=== PATIENT | female | born 1970 | race Caucasian/White ===

== ENCOUNTER → 2016-12-08 | Outpatient (CLI) | payer OTHER, BC ==
--- NOTE | 2016-12-11 09:58 | MM ---
Reason for exam: screening (asymptomatic). Last mammogram was performed 8 years and 1 month ago. History: Took hormonal contraceptives for 14 years beginning at age 22. Physical Findings: A clinical breast exam by your physician is recommended on an annual basis and results should be correlated with mammographic findings. MG 3D Screening Mammo W/Cad Bilateral CC and MLO view(s) were taken. Prior study comparison: November 10, 2008, bilateral digital screening mammogram. There are scattered fibroglandular densities. There is no discrete abnormality. No significant changes when compared with prior studies. ASSESSMENT: Negative, BI-RAD 1 RECOMMENDATION: Routine screening mammogram of both breasts in 1 year.
== END | disposition home or self-care (01) ==
LOC: RADMAMWWP 07:52
PROVIDERS: ATTEND Obstetrics & Gynecology
DX: Z12.31 Encounter for screening mammogram for malignant neoplasm of breast (principal)
CPT/HCPCS: 77063; G0202

== ENCOUNTER 2019-05-20 09:37 | Emergency (ER) | payer OTHER, BC ==
[2019-05-20 09:46] VITALS: BP 128/81; PULSE 100; RESP 20; TEMP 98.8
[2019-05-20] MEDS ORDERED: MORPHINE SULFATE 4 MG/ML SYRINGE IV STA (10:02)
[2019-05-20] MEDS ORDERED: SODIUM CHLORIDE 0.9% 1,000 ML IV STA ×2 (10:02)
[2019-05-20] MEDS ORDERED: KETOROLAC 30 MG/ML 1 ML VIAL IVP STA (10:02)
[2019-05-20] MEDS ORDERED: ONDANSETRON 4 MG/2 ML VIAL IVP STA (10:02)
--- NOTE | 2019-05-20 10:06 | ED ---
Abdominal Pain HPI - General Chief Complaint: Abdominal Pain Stated Complaint: Abd.pain Time Seen by Provider: 05/20/19 09:47 Source: patient, RN notes reviewed, old records reviewed Mode of arrival: wheelchair Limitations: no limitations - History of Present Illness Initial Comments: 49-year-old female suffers from today with diffuse abdominal pain since Sunday. Patient reports that it started with lower abdominal pain related to her entire abdomen now persist in her lower abdomen. She reports it is somewhat darker urine. She denies any significant fever but does report that she's had chills. She denies dysuria or changes in stools. Patient states that she's had no significant past medical history surgical history. No vomiting episodes. Patient reports that she has abdominal pain with going over bumps in the car, and any engagement of her abdominal muscles causes pain. - Related Data Previous Rx's Medication Instructions Recorded Amoxic-Pot Clav 875-125Mg 1 tab PO Q12HR #20 tablet 05/20/19 [Augmentin 875-125] Ondansetron Odt [Zofran Odt] 4 mg PO Q8HR PRN #12 tab 05/20/19 Allergies Allergy/AdvReac Type Severity Reaction Status Date / Time No Known Allergies Allergy Verified 05/20/19 10:48 Review of Systems ROS Statement: Those systems with pertinent positive or pertinent negative responses have been documented in the HPI. ROS Other: All systems not noted in ROS Statement are negative. Past Medical History Past Medical History: No Reported History History of Any Multi-Drug Resistant Organisms: None Reported Past Surgical History: No Surgical Hx Reported Past Psychological History: No Psychological Hx Reported Smoking Status: Never smoker Past Alcohol Use History: None Reported Past Drug Use History: None Reported General Exam - General Exam Comments Initial Comments: Patient is a 49-year-old female. Alert and oriented 3. No distress. Limitations: no limitations General appearance: alert, in no apparent distress Head exam: Present: atraumatic, normocephalic, normal inspection Eye exam: Present: normal appearance, PERRL, EOMI. Absent: scleral icterus, conjunctival injection, periorbital swelling ENT exam: Present: normal exam, mucous membranes moist Neck exam: Present: normal inspection. Absent: tenderness, meningismus, lymphadenopathy Respiratory exam: Present: normal lung sounds bilaterally. Absent: respiratory distress, wheezes, rales, rhonchi, stridor Cardiovascular Exam: Present: regular rate, normal rhythm, normal heart sounds. Absent: systolic murmur, diastolic murmur, rubs, gallop, clicks GI/Abdominal exam: Present: soft, tenderness (Patient is diffuse abdominal tenderness. Guarding over the left lower quadrant.), guarding (Left lower quadrant) Extremities exam: Present: normal inspection, full ROM, normal capillary refill. Absent: tenderness, pedal edema, joint swelling, calf tenderness Back exam: Present: normal inspection Neurological exam: Present: alert, oriented X3, CN II-XII intact Psychiatric exam: Present: normal affect, normal mood Skin exam: Present: warm, dry, intact, normal color. Absent: rash Course Vital Signs 05/20/19 09:43 Temperature 98.8 F Pulse Rate 100 Respiratory 20 Rate Blood Pressure 128/81 O2 Sat by Pulse 98 Oximetry Medical Decision Making - Medical Decision Making Patient is a 49-year-old female who presents emergency department today for evaluation for lower abdominal pain, intermittent chills. She denies any vomiting or changes in stool or bowel habits. Patient denied any urinary symptoms. At this time Patient reports she's not been eating much due to the pain. Patient's urinalysis is positive for 4+ ketones. No sign of infection. Blood work was reviewed and rolled to the unremarkable. She did have significant tenderness despite pain medication. CT on pelvis is noted. There is evidence of acute unconjugated diverticulitis. We'll treat the Patient at this time with a course of Augmentin. I discussed that Patient should follow-up promptly with primary care doctor. There is also some indeterminate lesions over bilateral kidneys. Discussed she follow out patiently in regards to this with her PCP. Patient agrees to treatment plan will comply. Return parameters were discussed. - Lab Data Result diagrams: 05/20/19 10:30 05/20/19 10:30 Lab Results 05/20/19 05/20/19 05/20/19 Range/Units 10:30 10:30 10:30 WBC (3.8-10.6) k/uL RBC (3.80-5.40) m/uL Hgb (11.4-16.0) gm/dL Hct (34.0-46.0) % MCV (80.0-100.0) fL MCH (25.0-35.0) pg MCHC (31.0-37.0) g/dL RDW (11.5-15.5) % Plt Count (150-450) k/uL Neutrophils % % Lymphocytes % % Monocytes % % Eosinophils % % Basophils % % Neutrophils # (1.3-7.7) k/uL Lymphocytes # (1.0-4.8) k/uL Monocytes # (0-1.0) k/uL Eosinophils # (0-0.7) k/uL Basophils # (0-0.2) k/uL PT (9.0-12.0) sec INR (<1.2) APTT (22.0-30.0) sec Sodium 140 (137-145) mmol/L Potassium 4.0 (3.5-5.1) mmol/L Chloride 107 (98-107) mmol/L Carbon Dioxide 22 (22-30) mmol/L Anion Gap 11 mmol/L BUN 11 (7-17) mg/dL Creatinine 0.67 (0.52-1.04) mg/dL Est GFR (CKD-EPI)AfAm >90 (>60 ml/min/1.73 sqM) Est GFR (CKD-EPI)NonAf >90 (>60 ml/min/1.73 sqM) Glucose 91 (74-99) mg/dL Calcium 9.0 (8.4-10.2) mg/dL Total Bilirubin 1.4 H (0.2-1.3) mg/dL AST 13 L (14-36) U/L ALT 19 (9-52) U/L Alkaline Phosphatase 69 (38-126) U/L Total Protein 6.4 (6.3-8.2) g/dL Albumin 3.8 (3.5-5.0) g/dL Amylase 39 (30-110) U/L Lipase 41 (23-300) U/L Urine Color Yellow Urine Appearance Cloudy H (Clear) Urine pH 6.0 (5.0-8.0) Ur Specific [place] 1.021 (1.001-1.035) Urine Protein 1+ H (Negative) Urine Glucose (UA) Negative (Negative) Urine Ketones 4+ H (Negative) Urine Blood Trace H (Negative) Urine Nitrite Negative (Negative) Urine Bilirubin Negative (Negative) Urine Urobilinogen <2.0 (<2.0) mg/dL Ur Leukocyte Esterase Negative (Negative) Urine RBC 2 (0-5) /hpf Urine WBC 1 (0-5) /hpf Ur Squamous Epith Cells 9 H (0-4) /hpf Urine Bacteria Rare H (None) /hpf Urine Mucus Few H (None) /hpf Urine HCG, Qual Not Detected (Not Detectd) 05/20/19 05/20/19 Range/Units 10:30 10:30 WBC 9.3 (3.8-10.6) k/uL RBC 4.53 (3.80-5.40) m/uL Hgb 13.8 (11.4-16.0) gm/dL Hct 40.7 (34.0-46.0) % MCV 89.7 (80.0-100.0) fL MCH 30.4 (25.0-35.0) pg MCHC 33.8 (31.0-37.0) g/dL RDW 13.4 (11.5-15.5) % Plt Count 182 (150-450) k/uL Neutrophils % 83 % Lymphocytes % 11 % Monocytes % 3 % Eosinophils % 0 % Basophils % 0 % Neutrophils # 7.8 H (1.3-7.7) k/uL Lymphocytes # 1.1 (1.0-4.8) k/uL Monocytes # 0.3 (0-1.0) k/uL Eosinophils # 0.0 (0-0.7) k/uL Basophils # 0.0 (0-0.2) k/uL PT 10.8 (9.0-12.0) sec INR 1.0 (<1.2) APTT 31.9 H (22.0-30.0) sec Sodium (137-145) mmol/L Potassium (3.5-5.1) mmol/L Chloride (98-107) mmol/L Carbon Dioxide (22-30) mmol/L Anion Gap mmol/L BUN (7-17) mg/dL Creatinine (0.52-1.04) mg/dL Est GFR (CKD-EPI)AfAm (>60 ml/min/1.73 sqM) Est GFR (CKD-EPI)NonAf (>60 ml/min/1.73 sqM) Glucose (74-99) mg/dL Calcium (8.4-10.2) mg/dL Total Bilirubin (0.2-1.3) mg/dL AST (14-36) U/L ALT (9-52) U/L Alkaline Phosphatase (38-126) U/L Total Protein (6.3-8.2) g/dL Albumin (3.5-5.0) g/dL Amylase (30-110) U/L Lipase (23-300) U/L Urine Color Urine Appearance (Clear) Urine pH (5.0-8.0) Ur Specific [place] (1.001-1.035) Urine Protein (Negative) Urine Glucose (UA) (Negative) Urine Ketones (Negative) Urine Blood (Negative) Urine Nitrite (Negative) Urine Bilirubin (Negative) Urine Urobilinogen (<2.0) mg/dL Ur Leukocyte Esterase (Negative) Urine RBC (0-5) /hpf Urine WBC (0-5) /hpf Ur Squamous Epith Cells (0-4) /hpf Urine Bacteria (None) /hpf Urine Mucus (None) /hpf Urine HCG, Qual (Not Detectd) - Radiology Data Radiology results: report reviewed Acute, acute sigmoid diverticulitis. Bilateral nephrolithiasis without hydronephrosis. Bilateral in determinate renal lesions due to size. Disposition Clinical Impression: Diverticulitis Disposition: HOME SELF-CARE Condition: Good Instructions (If sedation given, give patient instructions): Diverticulitis Diet (ED), Diverticulitis (ED) Additional Instructions: Patient advised to take the antibiotics as prescribed. Rest, remain hydrated. Have a bland food diet. Ensure you are monitoring her diet and avoiding any seeds and nuts that can trigger this and future. Patient can follow-up with her primary care doctor. Prescriptions: Amoxic-Pot Clav 875-125Mg [Augmentin 875-125] 1 tab PO Q12HR #20 tablet Ondansetron Odt [Zofran Odt] 4 mg PO Q8HR PRN #12 tab PRN Reason: Nausea Is patient prescribed a controlled substance at d/c from ED?: No Referrals: None,Stated [Primary Care Provider] - 1-2 days Time of Disposition: 11:55
[2019-05-20 10:43] LABS: Basophils % (A) 0 %; Eosinophils % (A) 0 %; HCT 40.7 % (34.0-46.0); HGB 13.8 gm/dL (11.4-16.0); Lymphocytes # (A) 1.1 k/uL (1.0-4.8); Lymphocytes % (A) 11 %; MCH 30.4 pg (25.0-35.0); MCHC 33.8 g/dL (31.0-37.0); MCV 89.7 fL (80.0-100.0); Mean Platelet Volume 7.6; Monocytes # (A) 0.3 k/uL (0-1.0); Monocytes % (A) 3 %; Neutrophils # (A) 7.8 k/uL (1.3-7.7); Neutrophils % (A) 83 %; Platelet Count 182 k/uL (150-450); RBC 4.53 m/uL (3.80-5.40); RDW 13.4 % (11.5-15.5); WBC 9.3 k/uL (3.8-10.6)
[2019-05-20 10:50] LABS: ALT 19 U/L (9-52); AST 13 U/L (14-36); African American GFR (CKD) >90 (>60 ml/min/1.73 sqM); Albumin 3.8 g/dL (3.5-5.0); Alkaline Phosphatase 69 U/L (38-126); Amylase 39 U/L (30-110); Anion Gap 11 mmol/L; Blood Urea Nitrogen 11 mg/dL (7-17); Carbon Dioxide 22 mmol/L (22-30); Chloride 107 mmol/L (98-107); Glucose 91 mg/dL (74-99); Lipase 41 U/L (23-300); Partial Thromboplastin Time 31.9 sec (22.0-30.0); Prothrombin Time 10.8 sec (9.0-12.0); Sodium 140 mmol/L (137-145); Total Bilirubin 1.4 mg/dL (0.2-1.3); Total Protein 6.4 g/dL (6.3-8.2)
[2019-05-20 10:51] LABS: Appearance,Urine Cloudy (Clear); Bacteria,Urine Rare /hpf; Bilirubin,Urine Negative (Negative); Blood,Urine Trace (Negative); Color,Urine Yellow; Glucose,Urine (UA) Negative (Negative); Ketones,Urine 4+ (Negative); Leukocyte Esterase,Urine Negative (Negative); Mucus,Urine Few /hpf; Nitrite,Urine Negative (Negative); Protein,Urine 1+ (Negative); RBC,Urine 2 /hpf (0-5); Specific Gravity,Urine 1.021 (1.001-1.035); Squamous Epithelial Cell,Urine 9 /hpf (0-4); Urobilinogen,Urine <2.0 mg/dL (<2.0); WBC,Urine 1 /hpf (0-5)
--- NOTE | 2019-05-20 11:52 | CT ---
EXAMINATION TYPE: CT abdomen pelvis w con DATE OF EXAM: 05/20/2019 COMPARISON: None HISTORY: Pelvic pain with bowel changes CT DLP: 1527.4 mGycm Automated exposure control for dose reduction was used. CONTRAST: CT scan of the abdomen pelvis is performed with IV Contrast, patient injected with 100 mL of Isovue 3 00. FINDINGS- LUNG BASES-subsegmental changes lung bases most typical of atelectasis. LIVER/GB- No gross abnormality is appreciated. PANCREAS- No gross abnormality is seen. SPLEEN- No gross abnormality is seen. ADRENALS- No gross abnormality is seen. KIDNEYS/BLADDER-there is a 3 mm left renal calculus and 1 mm lower pole right renal calculus but no h ydronephrosis. Hypodensities within both kidneys are indeterminate.. BOWEL-there is pericolonic inflammatory change within the sigmoid colon with surrounding diverticula with no evidence of abscess. LYMPH NODES- No greater than 1cm abdominal or pelvic lymph nodes areappreciated. OSSEOUS STRUCTURES- No significant abnormality is seen. OTHER- fat-containing periumbilical hernia. A trace amount of free fluid in the pelvis. IMPRESSION- 1. Acute uncomplicated sigmoid diverticulitis. 2. Bilateral nephrolithiasis with no hydronephrosis. Bilateral indeterminate renal lesions due to siz e.
[2019-05-20] MEDS ORDERED: ACET/COD 300 MG/30 MG STARTER PACK 6 TAB BTL PO STA (11:57)
[2019-05-20] MEDS ORDERED: AMOXIC-POT CLAV 875MG STARTER 2 EACH TABLET PO STA (11:57)
== END 2019-05-20 12:31 | disposition home or self-care (01) ==
LOC: EC 09:37
DX: K57.32 Diverticulitis of large intestine without perforation or abscess without bleeding (principal); N20.0 Calculus of kidney; R82.4 Acetonuria
CPT/HCPCS: 99284; 96374; 96375; 96361; 36415; 80053; 82150; 83690; 85025; 85610; 85730; 81001; 81025; 74177; J2270; J2405; J1885; Q9967

== ENCOUNTER → 2020-05-25 | Outpatient (CLI) | payer OTHER, BC ==
--- NOTE | 2020-05-26 11:28 | MM ---
Reason for exam: screening (asymptomatic). Last mammogram was performed 3 years and 6 months ago. History: Took hormonal contraceptives for 14 years beginning at age 22. Physical Findings: A clinical breast exam by your physician is recommended on an annual basis and results should be correlated with mammographic findings. MG 3D Screening Mammo W/Cad Bilateral CC and MLO view(s) were taken. Prior study comparison: December 08, 2016, bilateral MG 3d screening mammo w/cad. November 10, 2008, bilateral digital screening mammogram. There are scattered fibroglandular densities. There is no discrete abnormality. No significant changes when compared with prior studies. ASSESSMENT: Negative, BI-RAD 1 RECOMMENDATION: Routine screening mammogram of both breasts in 1 year.
== END | disposition home or self-care (01) ==
LOC: RADMAMWWP 08:14
PROVIDERS: ATTEND Obstetrics & Gynecology
DX: Z12.31 Encounter for screening mammogram for malignant neoplasm of breast (principal)
CPT/HCPCS: 77063; 77067

== ENCOUNTER → 2021-06-01 | Outpatient (CLI) | payer OTHER ==
--- NOTE | 2021-06-01 11:37 | MM ---
Reason for exam: screening (asymptomatic). Last mammogram was performed 1 year ago. History: Took hormonal contraceptives for 14 years beginning at age 22. Physical Findings: A clinical breast exam by your physician is recommended on an annual basis and results should be correlated with mammographic findings. MG 3D Screening Mammo W/Cad Bilateral CC and MLO view(s) were taken. Prior study comparison: May 25, 2020, bilateral MG 3d screening mammo w/cad. December 08, 2016, bilateral MG 3d screening mammo w/cad. There are scattered fibroglandular densities. ASSESSMENT: Negative, BI-RAD 1 RECOMMENDATION: Routine screening mammogram of both breasts in 1 year.
== END | disposition home or self-care (01) ==
LOC: RADMAMWWP 07:55
PROVIDERS: ATTEND Obstetrics & Gynecology
DX: Z12.31 Encounter for screening mammogram for malignant neoplasm of breast (principal); Z79.3 Long term (current) use of hormonal contraceptives
CPT/HCPCS: 77063; 77067

== ENCOUNTER → 2022-10-09 | Outpatient (CLI) | payer OTHER ==
--- NOTE | 2022-10-10 19:16 | MM ---
Reason for Exam: Screening (asymptomatic). Last mammogram was performed 1 year(s) and 4 month(s) ago. Patient History: Menarche at age 18. First Full-Term at age 32. Late child-bearing (after 32). Perimenopausal. Hormonal Contraceptives for 14 years from age 22 until age 36. Risk Values: Yesy 5 year model risk: 1.2%. NCI Lifetime model risk: 11.1%. Prior Study Comparison: 12/08/2016 Bilateral Screening Mammogram, [facility]. 05/25/2020 Bilateral Screening Mammogram, [facility]. 06/01/2021 Bilateral Screening Mammogram, [facility]. Tissue Density: There are scattered fibroglandular densities. Findings: Analyzed By CAD. No significant interval change No suspicious groups of microcalcifications, spiculated or lobular masses, architectural distortion or other secondary signs of malignancy are mammographically apparent. Overall Assessment: Benign, BI-RAD 2 Management: Screening Mammogram of both breasts in 1 year. A negative mammogram report should not preclude additional follow up of suspicious palpable abnormalities. Patient should continue monthly self breast exam. A clinical breast exam by your physician is recommended on an annual basis and results should be correlated with mammographic findings. Electronically signed and approved by: Nura Britton D.O. Radiologis
== END | disposition home or self-care (01) ==
LOC: RADMAMWWP 16:33
PROVIDERS: ATTEND Obstetrics & Gynecology
DX: Z12.31 Encounter for screening mammogram for malignant neoplasm of breast (principal)
CPT/HCPCS: 77063; 77067

== ENCOUNTER → 2023-11-09 | Outpatient (CLI) | payer OTHER ==
[2023-11-09 15:12] LABS: Basophils # (A) 0.03 X 10*3/uL (0.00-0.10); Basophils % (A) 0.6 %; Eosinophils # (A) 0.29 X 10*3/uL (0.04-0.35); HCT 44.9 % (37.2-46.3); Immature Grans, Automated 0 %; Lymphocytes % (A) 43.8 %; MCH 30.4 pg (27.0-32.0); MCHC 33.4 g/dL (32.0-37.0); MCV 90.9 FL (80.0-97.0); Mean Platelet Volume 10.7 FL (9.5-12.2); Monocytes # (A) 0.34 X 10*3/uL (0.20-1.00); Monocytes % (A) 7.1 %; NRBC Per 100 WBC 0 X 10*3/uL (0.00-0.01); Neutrophils # (A) 2.04 X 10*3/uL (1.80-7.70); Neutrophils % (A) 42.5 %; Platelet Count 214 X 10*3/uL (140-440); RBC 4.94 X 10*6/uL (4.10-5.20); RDW 12.4 % (11.5-14.5)
[2023-11-09 15:49] LABS: Chol/HDL Ratio 3.61 Ratio; LDL Cholesterol,Calculated 108.8 mg/dL (0.0-131.0)
== END | disposition home or self-care (01) ==
LOC: LABWHC1 08:03
PROVIDERS: ATTEND Family Medicine
DX: Z13.220 Encounter for screening for lipoid disorders (principal); Z13.21 Encounter for screening for nutritional disorder; Z13.228 Encounter for screening for other metabolic disorders; Z13.29 Encounter for screening for other suspected endocrine disorder
CPT/HCPCS: 36415; 80061; 82306; 82607; 83036; 84443; 85025

== ENCOUNTER → 2023-12-03 | Outpatient (CLI) | payer OTHER ==
--- NOTE | 2023-12-05 10:00 | MM ---
Reason for Exam: Screening (asymptomatic). Last mammogram was performed 1 year(s) and 2 month(s) ago. Patient History: Menarche at age 18. First Full-Term at age 32. Late child-bearing (after 32). Perimenopausal. Hormonal Contraceptives for 14 years from age 22 until age 36. Last menstrual period: 10/17/2023 Risk Values: Yesy 5 year model risk: 1.3%. NCI Lifetime model risk: 11.0%. Prior Study Comparison: 05/25/2020 Bilateral Screening Mammogram, [facility]. 06/01/2021 Bilateral Screening Mammogram, [facility]. 10/09/2022 Bilateral MG 3D screening mammo w/cad, [facility]. Tissue Density: The breast tissue is almost entirely fat. Findings: Analyzed By CAD. There is no suspicious group of microcalcifications or new suspicious mass. Overall Assessment: Negative, BI-RAD 1 Management: Screening Mammogram of both breasts in [address] [facility] will attempt to contact patient to return for supplemental views and ultrasound if indicated. Patient should continue monthly self-breast exams. A clinical breast exam by your physician is recommended on an annual basis. This exam should not preclude additional follow-up of suspicious palpable abnormalities. Note on Yesy scores and lifetime risk: 1. A Yesy score greater than 3% is considered moderate risk. If this is the case, consider specialist referral to assess eligibility for a risk reducing agent. 2. If overall lifetime risk for the development of breast cancer is 20% or higher, the patient may qualify for future screening with alternating mammogram and breast MRI. Electronically signed and approved by: Donte Fernandez DO
== END | disposition home or self-care (01) ==
LOC: RADMAMWWP 16:09
PROVIDERS: ATTEND Family Medicine
DX: Z12.31 Encounter for screening mammogram for malignant neoplasm of breast (principal)
CPT/HCPCS: 77063; 77067